=== PATIENT | male | born 1970 | race Caucasian/White ===

== ENCOUNTER 2022-08-21 15:30 | Emergency (ER) | payer MEDICARE, MEDICAID, SELFPAY ==
[2022-08-21 15:34] VITALS: BP 123/73; PULSE 103; RESP 18; TEMP 37.2; O2SAT 100; BMI 33.1
--- NOTE | 2022-08-21 15:57 | EKG12_ITS ---
Test Reason : REPEAT Blood Pressure : / mmHG Vent. Rate : 101 BPM Atrial Rate : 101 BPM P-R Int : 170 ms QRS Dur : 164 ms QT Int : 386 ms P-R-T Axes : 056 -22 125 degrees QTc Int : 500 ms Sinus tachycardia Left bundle branch block Abnormal ECG Confirmed by ANDRZEJ HURTADO, MADY ([id number]), assistant film editor ANIHSA PATEL ([id number]) on 08/25/2022 7:58:02 AM Referred By: Confirmed By:MADY DONNELLY MD
--- NOTE | 2022-08-21 16:00 | NURSING ---
NO OLD EKGS
[2022-08-21] MEDS: Ondansetron 4 MG/2 ML Vial IV ×2 (16:22→23:44)
--- NOTE | 2022-08-21 16:25 | RAD_ITS ---
STUDY: X-RAY CHEST REASON FOR EXAM: Male, 52 years old. Vomiting. Dialysis port came out during dialysis today. TECHNIQUE: PA and lateral views of the chest. COMPARISON: None. FINDINGS: The lungs are clear and expanded. Rest and small posterior left pleural effusion. No pneumothorax. Normal size heart. Normal mediastinum and maxwell. Normal visualized pulmonary arteries. Normal visualized aortic arch and descending thoracic aorta. The thoracic spine is obscured by the mediastinum. There is a left shoulder replacement. There is no demonstrated abnormality of the visualized soft tissue structures of the upper abdomen. RAD/Chest PA and Lateral IMPRESSION: Question small left pleural effusion. Electronically Signed: Fidel Pedraza DO at 16:45 EDT ,
[2022-08-21 16:31] LABS: Absolute Lymphocyte Count 0.27 X10^3/uL (0.83-4.51); Absolute Neutrophil Count 8.5 X10^3/uL (2.0-7.7); Basophil# 0.03 X10^3/uL; Basophil% 0.3 % (0-1); Eosinophil# 0.02 X10^3/uL; Eosinophils% 0.2 % (0-5); Hematocrit 30.5 % (40-54); Hemoglobin 9.7 g/dL (13.0-16.5); Lymphocyte # 0.27 X10^3/ul (0.83-4.51); Lymphocyte % 2.9 % (19-41); Mean Corp Hgb Conc 31.8 g/dL (32-36); Mean Corpuscular Hgb 27.7 pg (27.0-32.0); Mean Corpuscular Volume 87.1 fL (80-94); Mean Platelet Vol. 9.4 fl (6.2-12.0); Monocyte% 5.3 % (0-10); NRBC Flagged by Analyzer 0 % (0-5); Neutrophil # 8.46 X10^3/uL (2.7-7.7); Neutrophil % 90.6 % (47-70); POSITIVE DIFFERENTIAL YES; Platelet Count 145 K/mm3 (150-450); RBC Distribution Width CV 18.1 % (11.6-14.6); RBC Distribution Width SD 56.6 fl (35.1-43.9); White Blood Count 9.4 K/mm3 (4.4-11.0)
--- NOTE | 2022-08-21 16:31 | EDS_ITS ---
HPI History of Present Illness Chief Complaint: Chest Other Narrative Narrative: 52-year-old male from [facility]. Patient has a patient has a translumbar IVC tunneled cuffed hemodialysis catheter in the back. This was placed under IR guidance at [facility] on 06/22/2022. Apparently there had been multiple attempts to obtain a dialysis catheter prior to this and this was the only successful 1. Today he was getting dialysis and it came out. Patient states he did get 2 hours of dialysis today. Patient does not know much about his care from the hospital he states she does not remember it. The patient states that he has been having vomiting for a week and he reports nobody is on any blood work but has had some nausea medicine but does not know what it is. He denies chest pain, abdominal pain. Is not had fever or chills. PFSH PFSH Home Medications folic acid 1 mg tablet 1 mg PO DAILY 08/21/22 [History Last Taken Unknown] levothyroxine 175 mcg capsule 175 mcg PO DAILY 08/21/22 [History Last Taken Unknown] levothyroxine 175 mcg capsule 350 mcg PO QWEEK 08/21/22 [History Last Taken Unknown] liothyronine 5 mcg tablet 10 mcg PO DAILY 08/21/22 [History Last Taken Unknown] midodrine 5 mg tablet 10 mg PO TID 08/21/22 [History Last Taken Unknown] pantoprazole 40 mg tablet,delayed release 40 mg PO BID 08/21/22 [History Last Taken Unknown] potassium chloride 20 mEq tablet,extended release 20 meq PO DAILY 08/21/22 [History Last Taken Unknown] sucralfate 1 gram tablet 1 g PO 4X/DAY 08/21/22 [History Last Taken Unknown] venlafaxine 75 mg tablet 75 mg PO BID 08/21/22 [History Last Taken Unknown] Allergy/AdvReac Type Severity Reaction Status Date / Time No Known Allergies Allergy Verified 08/21/22 15:33 Social History Smoking Status: Never smoker ROS ROS ED Constitutional Constitutional ED: Denies chills or fever(s) Eyes Eyes: Denies change in vision ENT ENT ED: Denies rhinorrhea or sore throat Cardiovascular Cardiovascular: Denies chest pain or palpitations Respiratory/Chest Respiratory/Chest: Denies cough or dyspnea Gastrointestinal Gastrointestinal: Reports vomiting Genitourinary Genitourinary ED: Reports other Details: Patient does not make urine Musculoskeletal Musculoskeletal: Denies back pain Neurologic Neurologic: Denies headache(s) Psychiatric Psychiatric: Denies anxiety or depression EXAM Physical Exam Const Vital Signs: 08/21/22 15:34 08/21/22 15:43 08/21/22 17:16 Temperature 98.9 F Temperature Source Oral Pulse Rate 103 H 70 Respiratory Rate 18 18 Respiratory Pattern Normal Normal Blood Pressure 123/73 H Blood Pressure Mean 89 Pulse Ox 100 Oxygen Delivery Method Room Air 08/21/22 20:57 08/21/22 22:21 Temperature Temperature Source Pulse Rate 104 H 97 Respiratory Rate 14 Respiratory Pattern Blood Pressure 106/62 Blood Pressure Mean 76 Pulse Ox Oxygen Delivery Method Room Air Room Air Positive well nourished General Appearance ED: NAD HEENT atraumatic Eyes PERRL and EOMs intact bilaterally Resp normal respiratory effort and clear to auscultation bilaterally Cardio regular rhythm GI normal to inspection, nondistended, normoactive bowel sounds Back/Spine Back/Spine Narrative: There appears to be a tunneled dialysis catheter in the right side of the patient's back. Neuro oriented x3 and CN's II-XII intact bilaterally Sensorium / Orientation: alert Psych mental status grossly normal and thought process normal MDM MDM MDM Narrative Medical decision making narrative: Reviewed the patient's medical record on [facility]. The patient was admitted to [facility] on 06/03/2022 with a diagnosis of acute blood loss anemia secondary to an ulceration in his stomach. He also had a metabolic encephalopathy in which he was intubated and placed on a ventilator in the ICU. It appears that he had a vegetation on his aortic valve which was being treated with ampicillin and Rocephin. Patient previously on Eliquis due to DVT however this was stopped secondary to GI bleed. It does appear to show that they tried multiple attempts of PICC lines and dialysis catheters which were not successful and this is why he ended up with a translumbar PICC line which was done by interventional radiology. I discussed the case with Dr. Hayes who felt this was very complex and felt the patient would benefit from transfer especially due to multiple IR guided lines failing. I obtained basic lab work and an EKG as the patient has had some vomiting. EKG shows a sinus rhythm with a ventricular rate of 97 bpm with left bundle branch block. CBC showed a normal white blood cell count. Hemoglobin 9.7 which is higher than his baseline recently. His creatinine came back at 5.68 with a BUN of 58. His potassium was 6.8 with no noted hemolysis. He was treated with 10 units of insulin with an amp of D50, Kayexalate, albuterol treatments, calcium chloride. High-sensitivity troponin 68. EKG after treatment showed similar findings as the original which is sinus rhythm at a ventricular rate of 100 bpm without bundle branch block. Chest x- ray shows small left pleural effusion on my interpretation. Radiologist are persistent agrees. I discussed the case with Dr. Penn from [facility] who did accept the patient in transfer. Patient did get hypoglycemic again and he was given some more glucose to the IV. Patient remained medically stable. He is transported in stable condition. Impression: 1. Hyperkalemia 2. Nausea/vomiting 3. End-stage renal disease on dialysis 4. Displacement of dialysis catheter Lab Data Labs: Laboratory Results - last 24 hr 08/21/22 08/21/22 08/21/22 16:20 16:20 17:58 WBC 9.4 RBC 3.50 L Hgb 9.7 L Hct 30.5 L MCV 87.1 MCH 27.7 MCHC 31.8 L RDW Std Deviation 56.6 H RDW Coeff of Chandrakant 18.1 H Plt Count 145 L MPV 9.4 Immature Gran % (Auto) 0.700 Neut % (Auto) 90.6 H Lymph % (Auto) 2.9 L Barry % (Auto) 5.3 Eos % (Auto) 0.2 Baso % (Auto) 0.3 Absolute Neuts (auto) 8.5 H Absolute Lymphs (auto) 0.27 L Nucleated RBC % 0 Differential Comment SCANNED Hypochromasia 1+ Crenated Cell 1+ Sodium 129 L Potassium 6.8 H* Chloride 96 L Carbon Dioxide 28.0 Anion Gap 5 BUN 58 H Creatinine 5.68 H Estim Creat Clear Calc 14.89 Est GFR (MDRD) Af Amer 14 L Est GFR (MDRD) Non-Af 11 L BUN/Creatinine Ratio 10.2 Glucose 41 L* Calcium 8.8 Total Bilirubin 0.50 AST 6 L ALT 11 L Alkaline Phosphatase 201 H Troponin I High Sens 68 Total Protein 5.8 L Albumin 1.9 L Globulin 3.9 Albumin/Globulin Ratio 0.5 L POC Glucose 46 L 08/21/22 08/21/22 18:50 21:03 WBC RBC Hgb Hct MCV MCH MCHC RDW Std Deviation RDW Coeff of Chandrakant Plt Count MPV Immature Gran % (Auto) Neut % (Auto) Lymph % (Auto) Barry % (Auto) Eos % (Auto) Baso % (Auto) Absolute Neuts (auto) Absolute Lymphs (auto) Nucleated RBC % Differential Comment Hypochromasia Crenated Cell Sodium Potassium 5.8 H Chloride Carbon Dioxide Anion Gap BUN Creatinine Estim Creat Clear Calc Est GFR (MDRD) Af Amer Est GFR (MDRD) Non-Af BUN/Creatinine Ratio Glucose Calcium Total Bilirubin AST ALT Alkaline Phosphatase Troponin I High Sens Total Protein Albumin Globulin Albumin/Globulin Ratio POC Glucose 47 L Radiography Diagnostic Testing: Clinical Impression(s) from Imaging Studies Chest X-Ray 08/21/22 16:25 IMPRESSION: Question small left pleural effusion. Electronically Signed: Fidel Pedraza DO at 16:45 EDT Reading Location ID and State: [address] [place] [address] Tel [phone], Service support , Discharge Plan Triage Chief Complaint: Chest Other ED Provider: James Snyder Dx/Rx/DC Orders Prescriptions: No Action venlafaxine 75 mg Tablet 75 mg PO BID sucralfate 1 gram Tablet 1 g PO 4X/DAY midodrine 5 mg Tablet 10 mg PO TID Rx Instructions: do not give last dose of day after 6PM or within 4 hrs of bedtime liothyronine 5 mcg Tablet 10 mcg PO DAILY pantoprazole 40 mg Tablet,Delayed Release (Dr/Ec) 40 mg PO BID folic acid 1 mg Tablet 1 mg PO DAILY potassium chloride 20 mEq Tablet Extended Release 20 meq PO DAILY levothyroxine 175 mcg Capsule 175 mcg PO DAILY Rx Instructions: except sundays levothyroxine 175 mcg Capsule 350 mcg PO QWEEK Rx Instructions: sundays Primary Care Provider: Care Physician,No Primary Referrals: Care Physician,No Primary [Primary Care Provider] -
[2022-08-21 16:45] LABS: Differential Indicated SCAN CRITERIA MET
[2022-08-21 16:51] LABS: ALB/GLOB Ratio 0.5 RATIO (0.9-2.4); AST(SGOT) 6 U/L (15-37); Alanine Aminotransfer ALT/SGPT 11 U/L (16-61); Albumin, Serum 1.9 g/dL (3.2-5.0); Alkaline Phosphatase 201 U/L (45-117); Anion Gap 5 (5-15); BUN 58 mg/dL (7-18); BUN/Creat Ratio 10.2 RATIO (10-20); Calcium,Total 8.8 mg/dL (8.5-10.1); Chloride 96 mmol/L (98-107); Creatinine, Serum 5.68 mg/dL (0.70-1.30); EST Glomerular Filtration Rate 11 mL/min (>60); Est Glom Filt Rate - Afr Amer 14 mL/min (>60); Estimated Creatinine Clearance 14.89 ml/min; Globulin 3.9 g/dL (2.2-4.2); Glucose 41 mg/dL (74-106); Potassium 6.8 mmol/L (3.5-5.1); Protein, Total 5.8 g/dL (6.4-8.2); Sodium Level 129 mmol/L (136-145); Troponin-I HS 68 pg/mL (3.0-78.0)
--- NOTE | 2022-08-21 16:59 | ED.RN ---
called meal tray for pt
[2022-08-21 17:05] LABS: Differential Comment SCANNED
[2022-08-21 17:06] LABS: Crenated RBC 1+; Hypochromasia 1+
--- NOTE | 2022-08-21 17:09 | EKG12_ITS ---
Test Reason : CP Blood Pressure : / mmHG Vent. Rate : 097 BPM Atrial Rate : 097 BPM P-R Int : 168 ms QRS Dur : 160 ms QT Int : 390 ms P-R-T Axes : 057 -20 130 degrees QTc Int : 495 ms Normal sinus rhythm Left bundle branch block Abnormal ECG Confirmed by ANDRZEJ HURTADO, MADY ([id number]), purchasing expeditor ANISHA PATEL ([id number]) on 08/25/2022 7:58:15 AM Referred By: Confirmed By:MADY DONNELLY MD
[2022-08-21] MEDS: Albuterol 2.5 MG/3 ML VIAL.NEB. INHALATION ×2 (17:15)
[2022-08-21 17:16] VITALS: PULSE 70; RESP 18
[2022-08-21] MEDS: Insulin Lispro 10 UNIT in Syringe 0 ML 6 UNIT IV (17:42)
[2022-08-21] MEDS: Sodium Polystyrene Sulfonate 15 GM/60 ML UDC PO (17:42)
[2022-08-21] MEDS: Dextrose 50%-Water 25 GM/50 ML DISP.SYRIN IV ×2 (17:42→18:27)
[2022-08-21 18:17] LABS: Bedside Glucose 46 mg/dL (74-106)
[2022-08-21 19:03] LABS: Potassium 5.8 mmol/L (3.5-5.1)
--- NOTE | 2022-08-21 19:07 | NURSING ---
DR HEREDIA FOR DR REBOLLEDO
--- NOTE | 2022-08-21 19:55 | NURSING ---
FAXED FACESHEET TO [facility]
[2022-08-21 20:57] VITALS: BP 106/62; PULSE 104; RESP 14
[2022-08-21 21:23] LABS: Bedside Glucose 47 mg/dL (74-106)
[2022-08-21] MEDS: Dextrose 10%-Water 250 ML 999 ML IV (21:26)
[2022-08-21 22:21] VITALS: PULSE 97
[2022-08-21 23:30] VITALS: BP 119/70; PULSE 104; RESP 16; O2SAT 100
[2022-08-21 23:42] LABS: Bedside Glucose 64 mg/dL (74-106)
== END 2022-08-21 23:41 | disposition short-term general hospital (02) ==
PROVIDERS: Emergency Provider Student in an Organized Health Care Education/Training Program; Visit Provider Student in an Organized Health Care Education/Training Program
DX: T82.898A Other specified complication of vascular prosthetic devices, implants and grafts, initial encounter (principal); Z99.2 Dependence on renal dialysis; N18.6 End stage renal disease; R11.2 Nausea with vomiting, unspecified; E87.5 Hyperkalemia
CPT/HCPCS: 71046; 80053; 82962; 84132; 84484; 85025; 93005; 94640; 96361; 96374; 96375; 99285; A4216; J0612; J2405